=== PATIENT | male | born 1970 | race Caucasian/White ===

== ENCOUNTER 2017-05-13 04:20 | Emergency (ER) | payer SELFPAY ==
[~2017-05-13] VITALS: Ht 180.3 cm; Wt 97.5 kg
[2017-05-13 04:25] VITALS: BP_SYST 165
[2017-05-13] MEDS ORDERED: PREDNISONE 20 MG TABLET PO ONE (04:45)
[2017-05-13] MEDS ORDERED: IPRATROPIUM/ALBUTEROL SULFATE 3 ML AMPUL.NEB INH ONE (04:45)
[2017-05-13 05:10] VITALS: BP_SYST 152
== END 2017-05-13 04:25 | disposition home or self-care (01) ==
LOC: SED 04:20
DX: J11.1 Influenza due to unidentified influenza virus with other respiratory manifestations (principal); R06.2 Wheezing; I10 Essential (primary) hypertension; Z88.0 Allergy status to penicillin; F17.210 Nicotine dependence, cigarettes, uncomplicated; Z79.1 Long term (current) use of non-steroidal anti-inflammatories (NSAID)
CPT/HCPCS: 36415; 86710; 94640; 99284; J7512

== ENCOUNTER 2018-08-12 15:51 | Emergency (ER) | payer MEDICAID, OTHER ==
[~2018-08-12] VITALS: Ht 180.3 cm; Wt 99.8 kg
[2018-08-12 15:51] VITALS: BP_SYST 149
[2018-08-12] MEDS: LIDOCAINE 1% 10 MG/ML, 20 ML MDV INJ ONE ×2 (17:30→18:33)
[2018-08-12 18:30] VITALS: BP_SYST 149
== END 2018-08-12 18:30 | disposition home or self-care (01) ==
LOC: SED 15:51
DX: L02.511 Cutaneous abscess of right hand (principal); L02.416 Cutaneous abscess of left lower limb; L02.415 Cutaneous abscess of right lower limb; L02.31 Cutaneous abscess of buttock; F12.10 Cannabis abuse, uncomplicated; Z88.0 Allergy status to penicillin
CPT/HCPCS: 99283; J2001